=== PATIENT | male | born 1985 | race Caucasian/White ===

== ENCOUNTER → 2024-01-31 11:15 | Outpatient (BNVA) | payer MEDICARE, BC, SELFPAY | PROVIDERS: Visit Provider Nurse Practitioner | DX: I63.9 Cerebral infarction, unspecified (principal); R53.83 Other fatigue | CPT/HCPCS: 80053; 80061; 84443; 85025 ==

== ENCOUNTER → 2024-02-24 08:23 | Outpatient (BNVA) | payer MEDICARE, BC, SELFPAY | PROVIDERS: PCP Nurse Practitioner; Visit Provider Podiatrist Foot & Ankle Surgery | DX: I63.9 Cerebral infarction, unspecified (principal); M62.471 Contracture of muscle, right ankle and foot; M21.6X1 Other acquired deformities of right foot; Z91.81 History of falling; R26.81 Unsteadiness on feet; M25.371 Other instability, right ankle; M21.371 Foot drop, right foot | CPT/HCPCS: 99203 ==

== ENCOUNTER → 2024-03-04 14:07 | Outpatient (BNVA) | payer MEDICARE, BC, SELFPAY | PROVIDERS: PCP Nurse Practitioner; Referring Provider Nurse Practitioner; Visit Provider Nurse Practitioner | DX: D72.829 Elevated white blood cell count, unspecified (principal) | CPT/HCPCS: 85025 ==

== ENCOUNTER → 2024-06-29 08:46 | Outpatient (BNVA) | payer MEDICARE, SELFPAY | PROVIDERS: PCP Nurse Practitioner; Visit Provider Podiatrist Foot & Ankle Surgery | DX: M79.671 Pain in right foot (principal); M79.672 Pain in left foot; I63.9 Cerebral infarction, unspecified; M62.471 Contracture of muscle, right ankle and foot; M21.6X1 Other acquired deformities of right foot; Z91.81 History of falling; R26.81 Unsteadiness on feet; M25.371 Other instability, right ankle; M21.371 Foot drop, right foot | CPT/HCPCS: 99213 ==

== ENCOUNTER → 2025-06-21 09:34 | Outpatient (BNVA) | payer MEDICARE, SELFPAY | PROVIDERS: PCP Nurse Practitioner; Visit Provider Podiatrist Foot & Ankle Surgery | DX: I63.9 Cerebral infarction, unspecified (principal); M62.471 Contracture of muscle, right ankle and foot; M21.6X1 Other acquired deformities of right foot; Z91.81 History of falling; R26.81 Unsteadiness on feet; M25.371 Other instability, right ankle; M21.371 Foot drop, right foot | CPT/HCPCS: 99213 ==